=== PATIENT | male | born 1985 | race Caucasian/White ===

== ENCOUNTER 2021-05-13 13:34 | Observation (INO) ==
[2021-05-13 19:22] LABS: Basophils # (auto) 0.02 K/uL (0-0.2); Basophils % (auto) 0.2 %; Eosinophils # (auto) 0.14 K/uL (0-0.5); Eosinophils % (auto) 1.3 %; Hematocrit (blood only) 45.2 % (42-52); Hemoglobin 14.7 g/dL (14.0-18.0); Immature Granulocytes # (auto) 0.03 K/uL (0.00-0.02); Immature Granulocytes % (auto) 0.3 %; Lymphocytes # (auto) 3.05 K/uL (1.2-3.4); Lymphocytes % (auto) 29.2 %; Mean Corpuscular Hemoglobin 31.4 pg (25-34); Mean Corpuscular Hgb Conc 32.5 g/dL (32-36); Mean Corpuscular Volume 96.6 fL (80-100); Mean Platelet Volume 10.2 fL (7.4-10.4); Monocytes % (auto) 8.6 %; Neutrophils # (auto) 6.29 K/uL (1.4-6.5); Neutrophils % (auto) 60.4 %; Platelet Count 289 K/uL (130-400); RDW Coefficient of Variation 13.1 % (11.5-14.5); RDW Standard Deviation 46.3 fL (36.4-46.3); Red Blood Count 4.68 M/uL (4.7-6.1); White Blood Count 10.43 K/uL (4.8-10.8)
[2021-05-13 19:41] LABS: Albumin Level 4.2 gm/dl (3.4-5.0); BUN Creatinine Ratio 16.8 (10-20); Calcium 9.9 mg/dl (8.5-10.1); Creatinine Clr Calc Pharmacy 86.4 ml/min; Est GFR (Non-African American) 67.3 ml/min; Potassium 3.5 mmol/L (3.5-5.1)
[2021-05-13 19:44] LABS: Albumin Globulin Ratio 0.9 (0.9-2); Bilirubin,Total 0.7 mg/dl (0.2-1); Globulin 4.7 gm/dl (2.5-4.0); Total Protein 8.9 gm/dl (6.4-8.2)
--- NOTE | 2021-05-13 19:46 | Emergency Department Note ---
Impression & Plan Acute appendicitis with localized peritonitis without abscess ED Provider Note NAME: MAIK AGUIRRE AGE: 36 SEX: M : 1985 ARRIVES VIA: Walk-In INFORMANT: Patient, ED PROVIDER(S): Carlos Eduardo Leal MD Chief Complaint: HPI: Patient does present with concern for abdominal pain on the right lower quadrant x1 week. This radiated to the groin. Patient had been seen in the outpatient setting in the past but did have an ultrasound elevated. Patient actually had an ultrasound that was completed in the [employer] [facility] system which showed that he had an enlarged appendix. Patient does have worsening pain and describes it as burning when he sneezes or coughs. The patient does describe the right lower quadrant pain as achy or as if it is a pulled muscle. Patient states that he has had the symptoms since last . Did have some radiation into his right testicle. The patient has been doing some weight lifting but denies any bulges or masses noted. Patient denies any dysuria or hematuria. Patient is vaccinated for Covid. Patient denies any tobacco use. ROS: See HPI for pertinent positives and negatives. A total of 10 systems were reviewed and otherwise negative. Past medical history: See below Surgical history: See below Social history: See below Physical Exam: GENERAL: NAD, wearing a mask, non-toxic. EYE EXAM: Normal conjunctiva. PERRL, no anisocoria and EOM's grossly intact w/o pain. NECK: Supple, no nuchal rigidity, no adenopathy, non-tender. No signs of meningismus. FROM of the neck with good chin to chest and neck extension. No stridor. LUNGS: Clear to auscultation. Normal chest wall mechanics. HEART: NSR, no MRG. ABDOMEN: Abdomen soft, right lower quadrant pain, normo-active bowel sounds, no masses, no rebound or guarding. BACK: No CVA TTP. SKIN: No rashes and no bruising. UPPER EXTREMITIES: Upper extremities are grossly normal. LOWER EXTREMITIES: Grossly normal, no edema. NEURO EXAM: A&O x3, cranial nerves II-XII grossly intact, normal speech, moves all 4 extremities on command w/o issue. Differential diagnoses: Appendicitis, testicular torsion, infections, d iverticulitis, UTI, obstruction, mesenteric ischemia, aortic pathology, inflammatory bowel disease, renal colic, PUD, pancreatitis, biliary pathology, hernia, volvulus, constipation, as well as other pathologies. Course: Patient was seen and evaluated the bedside. Full history physical exam was performed. Imaging Studies: See Below Cardiac monitoring: An order was placed for continuous cardiac monitoring. The monitor shows a rate of 67 with sinus rhythm. MDM: Patient did present with concern for right lower quadrant pain and possible appendicitis. I did review the patient's outpatient note as well as the patient's outpatient ultrasound which did show concern for appendicitis. Blood work was obtained along with CT abdomen pelvis. CT does show acute appendicitis. Patient was ordered Mefoxin. I did speak the on-call general surgeon Dr. Caruso and the patient did have a Covid swab completed and the patient was taken to the OR for operative treatment. Past Med/Surg History Medical History No pertinent past medical history Surgical History No pertinent past surgical history Social History Smoking Status: Never smoker Preferred Language: Serbian Feels Safe at Home: Yes Allergies Allergies Allergy/AdvReac Type Severity Reaction Status Date / Time cats Allergy eyes swell Uncoded 05/13/21 20:20 Home Meds Home Medications Medication Instructions Recorded Confirmed ascorbic acid (vitamin C) 1,000 mg 1,000 mg PO QAM 03/30/19 05/13/21 tablet (Vitamin C) cholecalciferol (vitamin D3) 25 1,000 unit PO QAM 03/30/19 05/13/21 mcg (1,000 unit) tablet (Vitamin D3) ibuprofen 200 mg tablet 600 mg PO Q6H PRN 03/30/19 05/13/21 multivitamin 1 tab PO QAM 03/30/19 05/13/21 omega 3 350 mg-dha 235 mg-epa 90 1 cap PO QAM 03/30/19 05/13/21 mg-fish oil 597 mg capsule,delay rel ([place]-3) cyanocobalamin (vitamin B-12) 500 500 mcg PO QAM 05/13/21 05/13/21 mcg tablet Results & Data (ED) Vital Signs Vital Signs - 24 hr 05/13/21 13:58 05/13/21 20:36 05/13/21 20:40 Temperature 36.8 C Temperature Source Oral Pulse Rate 52 L 43 L 50 L Pulse Rate from SpO2 Sensor Respiratory Rate 16 20 24 Blood Pressure 152/83 H Blood Pressure Mean 106 Pulse Oximetry 98 100 100 Oxygen Delivery Method Room Air Room Air Sepsis Recent Fever Within 48 Hours No Sepsis New/Unexplained Change in Mental Status No Sepsis Action Taken by Nursing No Action Required 05/13/21 20:50 05/13/21 21:00 05/13/21 21:30 Temperature Temperature Source Pulse Rate 51 L 52 L 52 L Pulse Rate from SpO2 Sensor 53 L 52 L Respiratory Rate 18 15 17 Blood Pressure 137/80 121/73 Blood Pressure Mean 99 89 Pulse Oximetry 100 100 100 Oxygen Delivery Method Room Air Room Air Room Air Sepsis Recent Fever Within 48 Hours Sepsis New/Unexplained Change in Mental Status Sepsis Action Taken by Nursing 05/13/21 22:00 05/13/21 22:30 05/13/21 23:00 Temperature Temperature Source Pulse Rate 50 L 43 L 37 L Pulse Rate from SpO2 Sensor 43 L 44 L 38 L Respiratory Rate 17 16 12 Blood Pressure 129/70 120/68 108/64 Blood Pressure Mean 89 85 78 Pulse Oximetry 98 96 97 Oxygen Delivery Method Room Air Room Air Room Air Sepsis Recent Fever Within 48 Hours Sepsis New/Unexplained Change in Mental Status Sepsis Action Taken by Nursing 05/13/21 23:30 Temperature Temperature Source Pulse Rate 68 Pulse Rate from SpO2 Sensor 39 L Respiratory Rate 14 Blood Pressure 122/68 Blood Pressure Mean 86 Pulse Oximetry 96 Oxygen Delivery Method Room Air Sepsis Recent Fever Within 48 Hours Sepsis New/Unexplained Change in Mental Status Sepsis Action Taken by Shelter Medications Current Medication List: was personally reviewed by me Laboratory Data Attestation: I reviewed the patient's lab results. Result diagrams: 05/13/21 19:12 05/13/21 19:12 Lab Results 05/13/21 05/13/21 05/13/21 Range/Units 19:12 19:12 21:04 WBC 10.43 (4.8-10.8) K/uL RBC 4.68 L (4.7-6.1) M/uL Hgb 14.7 (14.0-18.0) g/dL Hct 45.2 (42-52) % MCV 96.6 (80-100) fL MCH 31.4 (25-34) pg MCHC 32.5 (32-36) g/dL RDW Std Deviation 46.3 (36.4-46.3) fL RDW Coeff of [place] 13.1 (11.5-14.5) % Plt Count 289 (130-400) K/uL MPV 10.2 (7.4-10.4) fL Immature Gran % (Auto) 0.3 % Neut % (Auto) 60.4 % Lymph % (Auto) 29.2 % [place] % (Auto) 8.6 % Eos % (Auto) 1.3 % Baso % (Auto) 0.2 % Neut # (Auto) 6.29 (1.4-6.5) K/uL Lymph # (Auto) 3.05 (1.2-3.4) K/uL [place] # (Auto) 0.90 H (0.11-0.59) K/uL Eos # (Auto) 0.14 (0-0.5) K/uL Baso # (Auto) 0.02 (0-0.2) K/uL Immature Gran # (Auto) 0.03 H (0.00-0.02) K/uL Sodium 137 (136-145) mmol/L Potassium 3.5 (3.5-5.1) mmol/L Chloride 101 (98-107) mmol/L Carbon Dioxide 27 (21-32) mmol/L Anion Gap 8.0 (3-11) BUN 22 H (7-18) mg/dl Creatinine 1.33 (0.6-1.4) mg/dl Est Cr Clr Drug Dosing 86.4 ml/min Est GFR ( Amer) 78.0 ml/min Est GFR (Non-Af Amer) 67.3 ml/min BUN/Creatinine Ratio 16.8 (10-20) Glucose 83 (70-99) mg/dl Calcium 9.9 (8.5-10.1) mg/dl Total Bilirubin 0.7 (0.2-1) mg/dl AST 15 (15-37) U/L ALT 18 (12-78) U/L Alkaline Phosphatase 58 (45-117) U/L Total Protein 8.9 H (6.4-8.2) gm/dl Albumin 4.2 (3.4-5.0) gm/dl Globulin 4.7 H (2.5-4.0) gm/dl Albumin/Globulin Ratio 0.9 (0.9-2) Lipase 126 (73-393) U/L COVID-19 Eval Order Covid19 at [facility] SARS-CoV-2 (PCR) (Negative) 05/13/21 Range/Units 21:04 WBC (4.8-10.8) K/uL RBC (4.7-6.1) M/uL Hgb (14.0-18.0) g/dL Hct (42-52) % MCV (80-100) fL MCH (25-34) pg MCHC (32-36) g/dL RDW Std Deviation (36.4-46.3) fL RDW Coeff of [place] (11.5-14.5) % Plt Count (130-400) K/uL MPV (7.4-10.4) fL Immature Gran % (Auto) % Neut % (Auto) % Lymph % (Auto) % [place] % (Auto) % Eos % (Auto) % Baso % (Auto) % Neut # (Auto) (1.4-6.5) K/uL Lymph # (Auto) (1.2-3.4) K/uL [place] # (Auto) (0.11-0.59) K/uL Eos # (Auto) (0-0.5) K/uL Baso # (Auto) (0-0.2) K/uL Immature Gran # (Auto) (0.00-0.02) K/uL Sodium (136-145) mmol/L Potassium (3.5-5.1) mmol/L Chloride (98-107) mmol/L Carbon Dioxide (21-32) mmol/L Anion Gap (3-11) BUN (7-18) mg/dl Creatinine (0.6-1.4) mg/dl Est Cr Clr Drug Dosing ml/min Est GFR ( Amer) ml/min Est GFR (Non-Af Amer) ml/min BUN/Creatinine Ratio (10-20) Glucose (70-99) mg/dl Calcium (8.5-10.1) mg/dl Total Bilirubin (0.2-1) mg/dl AST (15-37) U/L ALT (12-78) U/L Alkaline Phosphatase (45-117) U/L Total Protein (6.4-8.2) gm/dl Albumin (3.4-5.0) gm/dl Globulin (2.5-4.0) gm/dl Albumin/Globulin Ratio (0.9-2) Lipase (73-393) U/L COVID-19 Eval Order SARS-CoV-2 (PCR) NEGATIVE (Negative) Administered Medications Discontinued Medications Cefoxitin Sodium (Mefoxin) 2,000 mg in 60 mls @ 100 mls/hr IV NOW STA Stop: 05/13/21 21:00 Last Infusion: 05/13/21 21:57 Dose: 0 mls/hr Documented by: [id number] Admin: 05/13/21 21:21 Dose: 100 mls/hr Documented by: [id number] Piperacillin Sod/Tazobactam (Sod 3.375 gm/ Dextrose) 100 ml in 115 mls @ 230 mls/hr IV NOW STA Stop: 05/13/21 23:09 Last Admin: 05/13/21 23:12 Dose: 230 mls/hr Documented by: [id number] Ioversol (Optiray 320 100ml) 92 ml IV ONCE ONE Stop: 05/13/21 19:56 Last Admin: 05/13/21 19:55 Dose: 92 ml Documented by: [id number] Imaging Data Radiologist's Impression: Abdomen/Pelvis CT 05/13/21 19:[address] WITH IV CONTRAST CT DOSE: 420.31 mGy.cm HISTORY: Acute right lower quadrant abdominal pain enlarged appendix on US TECHNIQUE: Multiaxial CT images of the abdomen and pelvis were performed following the IV administration of 92 cc of Optiray, A dose lowering technique was utilized adhering to the principles of ALARA. COMPARISON STUDY: None. FINDINGS: Clear lung bases. No pneumatosis or pneumoperitoneum. The imaged inferior cardiac chambers are unremarkable. The spleen, pancreas, adrenal glands and gallbladder appear unremarkable. There are 2 hypodense lesions of the inferior right hepatic lobe measuring 2.7 and 1.8 cm respectively with areas of peripheral discontinuous nodular enhancement. Patent portal vein. Unremarkable kidneys. No hydronephrosis. Mild urinary bladder wall thickening with partial distention. Prostate is upper limits of normal in size. Aorta and IVC are unremarkable. No bowel obstruction. Mild to moderate fecal retention. The appendix is dilated and fluid-filled measuring up to 2.2 cm transversely and demonstrates wall thickening with mucosal hyperemia. Three appendicoliths are present measuring up to 1.5 cm. Periappendiceal inflammation without abscess. Lymph nodes within the right lower quadrant mesentery measure up to 11 mm, likely reactive. Unremarkable soft tissues. No acute. Multilevel Schmorl's nodes of the spine. Chronic bilateral L4 pars defects with grade 1 anterolisthesis L5. IMPRESSION: 1. Acute appendicitis with associated appendicoliths. No perforation or abscess. Surgical consultation is needed. 2. No bowel obstruction. 3. There are two hypodense lesions of the inferior right hepatic lobe with findings suggestive of hepatic hemangiomata. 4. Additional incidental findings as above. ACT 112: Negative or not required by law. The above report was generated using voice recognition software. It may contain grammatical, syntax or spelling errors. Electronically signed by: Jamal Costello M.D. 05/13/2021 8:20 PM Discharge Plan Visit Data Chief Complaint: Abdominal Pain Stated Complaint: [facility] ED Provider: Carlos Eduardo Leal ED Midlevel Provider: Butch Camejo Discharge Problem: Acute appendicitis with localized peritonitis without abscess Patient Disposition: Admitted As Inpatient Discharge Instructions Interventions: ED Discharge Assessment Last Done: 05/13/21 23:39
[2021-05-13] MEDS ORDERED: OPTIRAY 320 100ml IV ONE (19:55)
--- NOTE | 2021-05-13 20:22 | CT Scan Report ---
ABDOMEN AND PELVIS CT WITH IV CONTRAST CT DOSE: 420.31 mGy.cm HISTORY: Acute right lower quadrant abdominal pain enlarged appendix on US TECHNIQUE: Multiaxial CT images of the abdomen and pelvis were performed following the IV administrat ion of 92 cc of Optiray, A dose lowering technique was utilized adhering to the principles of ALARA. COMPARISON STUDY: None. FINDINGS: Clear lung bases. No pneumatosis or pneumoperitoneum. The imaged inferior cardiac chambers are unremarkable. The spleen, pancreas, adrenal glands and gallbladder appear unremarkable. There are 2 hypodense lesions of the inferior right hepatic lobe measuring 2.7 and 1.8 cm respectively with ar eas of peripheral discontinuous nodular enhancement. Patent portal vein. Unremarkable kidneys. No hydronephrosis. Mild urinary bladder wall thickening with partial distention . Prostate is upper limits of normal in size. Aorta and IVC are unremarkable. No bowel obstruction. Mild to moderate fecal retention. The appendix is dilated and fluid-filled mauricio uring up to 2.2 cm transversely and demonstrates wall thickening with mucosal hyperemia. Three append icoliths are present measuring up to 1.5 cm. Periappendiceal inflammation without abscess. Lymph node s within the right lower quadrant mesentery measure up to 11 mm, likely reactive. Unremarkable soft t issues. No acute. Multilevel Schmorl's nodes of the spine. Chronic bilateral L4 pars defects with gra de 1 anterolisthesis L5. IMPRESSION: 1. Acute appendicitis with associated appendicoliths. No perforation or abscess. Surgical consultatio n is needed. 2. No bowel obstruction. 3. There are two hypodense lesions of the inferior right hepatic lobe with findings suggestive of hep atic hemangiomata. 4. Additional incidental findings as above. ACT 112: Negative or not required by law. The above report was generated using voice recognition software. It may contain grammatical, syntax o r spelling errors. Electronically signed by: Jamal Costello M.D. 05/13/2021 8:20 PM
[2021-05-13] MEDS ORDERED: cefOXitin 2,000 MG/60 ML BAG IV STA (20:25)
--- NOTE | 2021-05-13 20:26 | Emergency Department Note ---
ED Visit Note I saw this patient with Dr. Leal. Please refer to his note for HPI. . Resident Activity Tracking Resident Involvement: Resident Care Provided Care Provided: Adult ED
[2021-05-13] MEDS ORDERED: PIPERACILL/TAZOBAC CONSULT ACTIVE PRN (21:51)
--- NOTE | 2021-05-13 22:26 | History & Physical Report ---
Date of Service May 13, 2021 Assessment & Plan (1) Acute appendicitis with localized peritonitis without abscess: Plan: 36-year-old gentleman presents to the emergency department with acute appendicitis. Covid test is pending. He has been given antibiotics in the emergency department. I discussed with him the risks and benefits of laparoscopic appendectomy. The risks include: Bleeding, infection, leak, obstruction, injury to the surrounding structures, need for further procedures or open procedure. All his questions were answered, and he is agreeable to proceed. We will take him to the operating room at the earliest possible convenience. History of Present Illness Primary Care Provider: NO PCP 36-year-old gentleman presents with 1 week history of right lower quadrant pain, on and off. He states that yesterday the pain became significantly more severe in the right side. He denies fevers or chills. He denies nausea or vomiting. He has been eating and having normal bowel movements. He last ate this morning at 6 AM. He denies any prior surgical history. A CT scan demonstrates acute appendicitis with multiple appendicoliths. Allergies Allergy/AdvReac Type Severity Reaction Status Date / Time cats Allergy eyes swell Uncoded 05/13/21 20:20 Home Medications Medication Instructions Recorded Confirmed Type ascorbic acid (vitamin C) 1,000 mg 1,000 mg PO QAM 03/30/19 05/13/21 History tablet (Vitamin C) cholecalciferol (vitamin D3) 25 1,000 unit PO QAM 03/30/19 05/13/21 History mcg (1,000 unit) tablet (Vitamin D3) ibuprofen 200 mg tablet 600 mg PO Q6H PRN 03/30/19 05/13/21 History multivitamin 1 tab PO QAM 03/30/19 05/13/21 History omega 3 350 mg-dha 235 mg-epa 90 1 cap PO QAM 03/30/19 05/13/21 History mg-fish oil 597 mg capsule,delay rel ([place]-3) cyanocobalamin (vitamin B-12) 500 500 mcg PO QAM 05/13/21 05/13/21 History mcg tablet Past Med/Surg History Medical History No pertinent past medical history Surgical History No pertinent past surgical history Social History Smoking Status: Never smoker Preferred Language: Setswana Feels Safe at Home: Yes Review of Systems Review of Systems: All systems reviewed & are unremarkable except as noted in HPI & below Physical Exam Constitutional: WD/WN, vitals as above Eyes: PERRL, conjunctivae normal, anicteric sclerae Neck: trachea midline, no thyromegaly Respiratory: normal respiratory effort, lungs clear to auscultation Cardiovascular: RRR, no murmur, no edema Gastrointestinal (Abdomen): Inspection/Auscultation: abdomen normal to inspection; abdomen not distended and no abdominal surgical scar Percussion/Palpation: + abdomen tender (right mid and lower quadrant) and abdomen soft; no guarding and abdomen not rigid Musculoskeletal: Extremities: no cyanosis and no clubbing Skin: no rashes, warm and dry Psychiatric: A+Ox3, euthymic affect Results & Data Results & Data ([facility]) Vital Signs (Past 12 Hours) Vital Signs Temp Pulse Resp BP Pulse Ox 05/13/21 22:00 50 L 17 129/70 98 05/13/21 21:30 52 L 17 121/73 100 05/13/21 21:00 52 L 15 137/80 100 05/13/21 20:50 51 L 18 100 05/13/21 20:40 50 L 24 100 05/13/21 20:36 43 L 20 100 05/13/21 13:58 36.8 C 52 L 16 152/83 H 98 Laboratory Results 05/13/21 05/13/21 05/13/21 Range/Units 21:04 21:04 19:12 WBC (4.8-10.8) K/uL RBC (4.7-6.1) M/uL Hgb (14.0-18.0) g/dL Hct (42-52) % MCV (80-100) fL MCH (25-34) pg MCHC (32-36) g/dL RDW Std Deviation (36.4-46.3) fL RDW Coeff of [place] (11.5-14.5) % Plt Count (130-400) K/uL MPV (7.4-10.4) fL Immature Gran % (Auto) % Neut % (Auto) % Lymph % (Auto) % [place] % (Auto) % Eos % (Auto) % Baso % (Auto) % Neut # (Auto) (1.4-6.5) K/uL Lymph # (Auto) (1.2-3.4) K/uL [place] # (Auto) (0.11-0.59) K/uL Eos # (Auto) (0-0.5) K/uL Baso # (Auto) (0-0.2) K/uL Immature Gran # (Auto) (0.00-0.02) K/uL Sodium 137 (136-145) mmol/L Potassium 3.5 (3.5-5.1) mmol/L Chloride 101 (98-107) mmol/L Carbon Dioxide 27 (21-32) mmol/L Anion Gap 8.0 (3-11) BUN 22 H (7-18) mg/dl Creatinine 1.33 (0.6-1.4) mg/dl Est Cr Clr Drug Dosing 86.4 ml/min Est GFR ( Amer) 78.0 ml/min Est GFR (Non-Af Amer) 67.3 ml/min BUN/Creatinine Ratio 16.8 (10-20) Glucose 83 (70-99) mg/dl Calcium 9.9 (8.5-10.1) mg/dl Total Bilirubin 0.7 (0.2-1) mg/dl AST 15 (15-37) U/L ALT 18 (12-78) U/L Alkaline Phosphatase 58 (45-117) U/L Total Protein 8.9 H (6.4-8.2) gm/dl Albumin 4.2 (3.4-5.0) gm/dl Globulin 4.7 H (2.5-4.0) gm/dl Albumin/Globulin Ratio 0.9 (0.9-2) Lipase 126 (73-393) U/L COVID-19 Eval Order Covid19 at [facility] SARS-CoV-2 (PCR) Pending 05/13/21 Range/Units 19:12 WBC 10.43 (4.8-10.8) K/uL RBC 4.68 L (4.7-6.1) M/uL Hgb 14.7 (14.0-18.0) g/dL Hct 45.2 (42-52) % MCV 96.6 (80-100) fL MCH 31.4 (25-34) pg MCHC 32.5 (32-36) g/dL RDW Std Deviation 46.3 (36.4-46.3) fL RDW Coeff of [place] 13.1 (11.5-14.5) % Plt Count 289 (130-400) K/uL MPV 10.2 (7.4-10.4) fL Immature Gran % (Auto) 0.3 % Neut % (Auto) 60.4 % Lymph % (Auto) 29.2 % [place] % (Auto) 8.6 % Eos % (Auto) 1.3 % Baso % (Auto) 0.2 % Neut # (Auto) 6.29 (1.4-6.5) K/uL Lymph # (Auto) 3.05 (1.2-3.4) K/uL [place] # (Auto) 0.90 H (0.11-0.59) K/uL Eos # (Auto) 0.14 (0-0.5) K/uL Baso # (Auto) 0.02 (0-0.2) K/uL Immature Gran # (Auto) 0.03 H (0.00-0.02) K/uL Sodium (136-145) mmol/L Potassium (3.5-5.1) mmol/L Chloride (98-107) mmol/L Carbon Dioxide (21-32) mmol/L Anion Gap (3-11) BUN (7-18) mg/dl Creatinine (0.6-1.4) mg/dl Est Cr Clr Drug Dosing ml/min Est GFR ( Amer) ml/min Est GFR (Non-Af Amer) ml/min BUN/Creatinine Ratio (10-20) Glucose (70-99) mg/dl Calcium (8.5-10.1) mg/dl Total Bilirubin (0.2-1) mg/dl AST (15-37) U/L ALT (12-78) U/L Alkaline Phosphatase (45-117) U/L Total Protein (6.4-8.2) gm/dl Albumin (3.4-5.0) gm/dl Globulin (2.5-4.0) gm/dl Albumin/Globulin Ratio (0.9-2) Lipase (73-393) U/L COVID-19 Eval Order SARS-CoV-2 (PCR) Diagnostic Findings ABDOMEN AND PELVIS CT WITH IV CONTRAST CT DOSE: 420.31 mGy.cm HISTORY: Acute right lower quadrant abdominal pain enlarged appendix on US TECHNIQUE: Multiaxial CT images of the abdomen and pelvis were performed following the IV administration of 92 cc of Optiray, A dose lowering technique was utilized adhering to the principles of ALARA. COMPARISON STUDY: None. FINDINGS: Clear lung bases. No pneumatosis or pneumoperitoneum. The imaged inferior cardiac chambers are unremarkable. The spleen, pancreas, adrenal glands and gallbladder appear unremarkable. There are 2 hypodense lesions of the inferior right hepatic lobe measuring 2.7 and 1.8 cm respectively with areas of peripheral discontinuous nodular enhancement. Patent portal vein. Unremarkable kidneys. No hydronephrosis. Mild urinary bladder wall thickening with partial distention. Prostate is upper limits of normal in size. Aorta and IVC are unremarkable. No bowel obstruction. Mild to moderate fecal retention. The appendix is dilated and fluid-filled measuring up to 2.2 cm transversely and demonstrates wall thickening with mucosal hyperemia. Three appendicoliths are present measuring up to 1.5 cm. Periappendiceal inflammation without abscess. Lymph nodes within the right lower quadrant mesentery measure up to 11 mm, likely reactive. Unremarkable soft tissues. No acute. Multilevel Schmorl's nodes of the spine. Chronic bilateral L4 pars defects with grade 1 anterolisthesis L5. IMPRESSION: 1. Acute appendicitis with associated appendicoliths. No perforation or abscess. Surgical consultation is needed. 2. No bowel obstruction. 3. There are two hypodense lesions of the inferior right hepatic lobe with findings suggestive of hepatic hemangiomata. 4. Additional incidental findings as above.
[2021-05-13] MEDS ORDERED: PIPERACILLIN/TAZOBACTAM 3.375 GM in DEXTROSE 5% 100 ML/100 ML BAG IV STA (22:40)
[2021-05-13] MEDS ORDERED: BUPIVACAINE 0.5 % 5 MG/1 ML MPF 30ML VIAL ONE (23:58)
[2021-05-14] MEDS ORDERED: PROPOFOL IV EMULSION 10 MG/ML 20 ML VIAL IV ONE (00:06)
[2021-05-14] MEDS ORDERED: DEXAMETHASONE SOD INJ 4 MG/ML VIAL ONE (00:06)
[2021-05-14] MEDS ORDERED: LIDOCAINE 2% 2 ML VIAL/AMP(20MG/ML) INFIL ONE (00:06)
[2021-05-14] MEDS ORDERED: SUCCINYLCHOLINE 100MG/5ML SYR IV ONE (00:06)
[2021-05-14] MEDS ORDERED: ROCURONIUM BROMIDE 10 MG/ML 5 ML VIAL IV ONE (00:06)
[2021-05-14] MEDS ORDERED: ONDANSETRON INJ 2 MG/ML 2 ML VIAL ONE (00:06)
[2021-05-14] MEDS ORDERED: fentaNYL citrate 100 MCG/2 ML VIAL ONE ×2 (00:07→01:01)
--- NOTE | 2021-05-14 00:18 | Anesthesiology Consultation ---
Date of Service May 14, 2021 Assessment & Plan (1) Encounter for pre-operative examination: Chart Review Chart Review: Acceptable Risk for Surgery and Patient NOT seen in Pre Admission Testing Consults Requested none History Surgery Operation Date: 05/13/21 23:59 Proposed Procedures p Laparoscopic Appendectomy - Tomas Caruso MD Height/Weight Height: 5 ft 10 in Weight: 93.2 kg Allergies Allergy/AdvReac Type Severity Reaction Status Date / Time cats Allergy eyes swell Uncoded 05/13/21 20:20 Medications Home Medications Medication Instructions Recorded Confirmed Last Taken ascorbic acid (vitamin C) 1,000 mg 1,000 mg PO QAM 03/30/19 05/13/21 05/13/21 tablet (Vitamin C) cholecalciferol (vitamin D3) 25 1,000 unit PO QAM 03/30/19 05/13/21 05/13/21 mcg (1,000 unit) tablet (Vitamin D3) ibuprofen 200 mg tablet 600 mg PO Q6H PRN 03/30/19 05/13/21 03/30/19 07:30 600 mg multivitamin 1 tab PO QAM 03/30/19 05/13/21 05/13/21 omega 3 350 mg-dha 235 mg-epa 90 1 cap PO QAM 03/30/19 05/13/21 05/13/21 mg-fish oil 597 mg capsule,delay rel ([place]-3) cyanocobalamin (vitamin B-12) 500 500 mcg PO QAM 05/13/21 05/13/21 05/13/21 mcg tablet Past Medical History Medical History No pertinent past medical history Past Surgical History Surgical History No pertinent past surgical history Social History Smoking Status: Never smoker Physical Exam Vital Signs Last Vital Signs Temp 36.8 C 05/13/21 13:58 Pulse 68 05/13/21 23:30 Resp 14 05/13/21 23:30 BP 122/68 05/13/21 23:30 Pulse Ox 96 05/13/21 23:30 Testing Laboratory Results 05/13/21 19:12 05/13/21 19:12
[2021-05-14] MEDS ORDERED: PROMETHAZINE HCL 12.5 MG in SODIUM CHLORIDE 0.9% 50 ML IV PRN ×2 (00:27→03:46)
[2021-05-14] MEDS ORDERED: fentaNYL citrate 100 MCG/2 ML VIAL IV PRN (00:27)
[2021-05-14] MEDS ORDERED: ATROPINE SULFATE 0.1 MG/ML 10ML SYR IV PRN (00:27)
[2021-05-14] MEDS ORDERED: ONDANSETRON INJ 2 MG/ML 2 ML VIAL IV PRN ×2 (00:27→03:46)
[2021-05-14] MEDS ORDERED: ePHEDrine sulfate 50 MG/ML AMP IV PRN (00:27)
[2021-05-14] MEDS ORDERED: HYDROmorphone INJ 1 MG/ML SYRINGE IV PRN (00:27)
[2021-05-14] MEDS ORDERED: GLYCOPYRROLATE 0.2 MG/ML VIAL ONE ×2 (01:35→01:36)
[2021-05-14] MEDS ORDERED: NEOSTIGMINE METHYLSULFATE 1 MG/ML 10ML VIAL ONE (01:35)
--- NOTE | 2021-05-14 02:05 | Post Operative Brief Note ---
Immediate Post Op Note v1 Date of Surgery May 14, 2021 Pre & Post Diagnosis Operation Date: 05/13/21 23:59 Pre-Op Diagnosis: Acute Appendicitis Post-Op Diagnosis: Acute Appendicitis I identified the patient and participated in the time-out.: Yes Procedure Operation Date: 05/13/21 23:59 Actual Procedures p Laparoscopic Appendectomy(Not Applicable) - Tomas Caruso MD Surgeon Tomas Caruso MD Market Research Assistant none Estimated Blood Loss 5 Findings Consistent with Post-Op Diagnosis
--- NOTE | 2021-05-14 02:09 | Operative Report ---
Post Operative Report Pre & Post Diagnosis Operation Date: 05/13/21 23:59 Pre-Op Diagnosis: Acute Appendicitis Post-Op Diagnosis: Acute Appendicitis I identified the patient and participated in the time-out.: Yes Procedure Operation Date: 05/13/21 23:59 Actual Procedures p Laparoscopic Appendectomy(Not Applicable) - Tomas Caruso MD Surgeon Tomas Caruso MD [employer] none Estimated Blood Loss 5 Findings Consistent with Post-Op Diagnosis severe acute appendicitis; no perforation; severe inflammatory reaction Specimens appendix Anesthesia Type General Complications No immediate complications Indications Acute appendicitis Description of Procedure The patient was taken to the operating room, and placed supine on the operating table. A timeout was performed, perioperative antibiotics were administered, SCD boots were placed. After adequate anesthesia and analgesia was obtained, the abdomen was prepped and draped in the normal sterile fashion. A 1 cm incision was made in the supraumbilical region and carried down to the level of the fascia. A trach hook was used to grasp the fascia and elevated and a varies needle was used to enter the abdominal cavity. The abdomen was insufflated to a pressure of 15 mmHg, and a 5 mm trocar was placed in this location. A 5 mm 30 degree laparoscope was placed into the abdominal cavity, and the abdomen was surveyed. There is a severe inflammatory reaction in the right lower quadrant. The appendix was very dilated. The patient was placed in Trendelenburg and slightly to the left. One 5 mm trocar was placed in the right upper quadrant, and one 12 mm trocar was placed in the left lower quadrant under direct visualization. The right colon was identified and traced down to the cecum. The appendix was identified and elevated anteriorly and medially. It was very difficult to grasp the appendix as it was very dilated and firm. There is a severe inflammatory reaction at the appendix. I was able to peel the appendix off the pelvic sidewall with blunt dissection and judicious use of the cautery. A window was created at the base of the appendix with a [place] dissector. The Endo MEME stapler was used to transect the appendix at its base through noninflamed tissue, which entailed taking a cuff of cecum. Subsequently, the mesoappendix was transected with the MEME stapler as well. The appendix was placed in an Endo Catch bag, and removed via the left lower quadrant port site. The left lower quadrant port site had to be significantly enlarged to remove the appendix due to its size. Attention was turned to hemostasis, which was excellent. The abdomen was copiously irrigated and suctioned free, and again hemostasis was found to be excellent. All trochars removed under direct visualization. The abdomen was desufflated. The fascia in the 12 mm port site was closed with a 0 Vicryl suture. The skin was closed with a running 4-0 Monocryl subcuticular stitch. Dermabond was applied. The patient tolerated the procedure without complication, and was transferred in stable condition to the PACU. All instrument, needle, and sponge counts were correct at the end of the case. I attest to the content of the Intraoperative Record and any orders documented therein. Any exceptions are noted below.
[2021-05-14] MEDS ORDERED: MEPERIDINE HCL 25 MG/ML CARP/VIAL IV PRN (02:19)
--- NOTE | 2021-05-14 03:05 | Anesthesiology Progress Note ---
Date of Service May 14, 2021 Anesthesia Post Procedure Vital Signs Vital Signs: Temp Pulse Pulse Resp BP BP Pulse Ox 05/14/21 02:50 48 L 11 L 142/87 H 97 05/14/21 02:40 44 L 15 135/84 99 05/14/21 02:30 45 L 16 149/84 H 98 05/14/21 02:20 37.4 C 81 18 152/92 H 94 05/13/21 23:30 68 14 122/68 96 05/13/21 23:00 37 L 12 108/64 97 05/13/21 22:30 43 L 16 120/68 96 05/13/21 22:00 50 L 17 129/70 98 05/13/21 21:30 52 L 17 121/73 100 05/13/21 21:00 52 L 15 137/80 100 05/13/21 20:50 51 L 18 100 05/13/21 20:40 50 L 24 100 05/13/21 20:36 43 L 20 100 05/13/21 13:58 36.8 C 52 L 16 152/83 H 98 Pain Intensity Right Lower Abdomen: Pain Intensity: 0 Transfer of Care Handoff Completed per policy Notes Mental Status: alert / awake / arousable and participated in evaluation Patient Amnestic to Procedure: Yes Nausea / Vomiting: adequately controlled Pain: adequately controlled Airway Patency, RR, SpO2: stable & adequate BP & HR: stable & adequate Hydration State: stable & adequate Anesthetic Complications: no major complications apparent and Pt Satisfied with anesthetic care
[2021-05-14] MEDS ORDERED: MoRPHine SULFATE 2 MG/ML CARP IV PRN (03:46)
[2021-05-14] MEDS ORDERED: diphenhydrAMINE 50 MG/ML VIAL IV PRN (03:46)
[2021-05-14] MEDS: LACTATED RINGER'S 1,000 ML IV SCH ×2 (04:20→23:28)
[2021-05-14] MEDS: PIPERACILLIN/TAZOBACTAM 3.375 GM in DEXTROSE 5% 100 ML IV SCH ×3 (04:44→19:39)
[2021-05-14] MEDS: ENOXAPARIN INJ 40 MG/0.4 ML SYR SQ SCH (05:51)
[2021-05-14] MEDS: oxyCODONE/ACETAMINOPHEN 5mg/325mg TAB PO PRN ×3 (07:34→19:51)
[2021-05-14] MEDS ORDERED: COUGH DROP (SUGAR FREE) LOZ 24 LOZ/1 BOX BUCCAL PRN (10:21)
--- NOTE | 2021-05-14 15:42 | Surgery Progress Note ---
Date of Service May 14, 2021 Assessment & Plan (1) Acute appendicitis with localized peritonitis without abscess: Plan: POD # 0, 13 hours postop, laparoscopic appendectomy afebrile, vss moderate postop pain controlled mild abdominal distension, no n/v Plan: Continue pain management as needed ambulate hallway continue regular diet incentive spirometry scds likely home tomorrow am Dr. Caruso has seen and examined pt, agrees with above. Admission and Anticipated Discharge Date Admission Date: May 14, 2021 Subjective feeling okay, pain moderate but controlled with Percocet tolerated diet for lunch, no n/v no chest pain or shortness of breath able to urinate but had some burning has ambulated hallway 8-10 laps Physical Exam Constitutional: WD/WN, vitals as above no acute distress and not ill appearing Gastrointestinal (Abdomen): Inspection/Auscultation: abdomen normal to inspection, + abdomen distended (very mildly), normal bowel sounds and + abdominal surgical incision (clean,dry,intact with dermabond) Percussion/Palpation: + abdomen tender (at incision sites and RLQ) and abdomen soft; no guarding and abdomen not rigid Results & Data ([facility]) Vital Signs (Past 12 Hours) Vital Signs Temp Pulse Pulse Resp BP Pulse Ox Pulse Ox 05/14/21 11:29 36.6 C 69 16 143/76 H 93 05/14/21 08:20 46 L 18 94 05/14/21 06:57 37.1 C 73 18 144/71 H 96 05/14/21 05:55 36.9 C 54 L 16 135/74 95 05/14/21 04:51 37.2 C 53 L 16 138/76 96 05/14/21 04:16 37.3 C 48 L 20 147/81 H 93 05/14/21 03:48 37.1 C 48 L 16 153/86 H 94 05/14/21 03:46 94 Laboratory Results 05/13/21 05/13/21 05/13/21 Range/Units 21:04 21:04 19:12 WBC (4.8-10.8) K/uL RBC (4.7-6.1) M/uL Hgb (14.0-18.0) g/dL Hct (42-52) % MCV (80-100) fL MCH (25-34) pg MCHC (32-36) g/dL RDW Std Deviation (36.4-46.3) fL RDW Coeff of Tyler (11.5-14.5) % Plt Count (130-400) K/uL MPV (7.4-10.4) fL Immature Gran % (Auto) % Neut % (Auto) % Lymph % (Auto) % Villalba % (Auto) % Eos % (Auto) % Baso % (Auto) % Neut # (Auto) (1.4-6.5) K/uL Lymph # (Auto) (1.2-3.4) K/uL Villalba # (Auto) (0.11-0.59) K/uL Eos # (Auto) (0-0.5) K/uL Baso # (Auto) (0-0.2) K/uL Immature Gran # (Auto) (0.00-0.02) K/uL Sodium 137 (136-145) mmol/L Potassium 3.5 (3.5-5.1) mmol/L Chloride 101 (98-107) mmol/L Carbon Dioxide 27 (21-32) mmol/L Anion Gap 8.0 (3-11) BUN 22 H (7-18) mg/dl Creatinine 1.33 (0.6-1.4) mg/dl Est Cr Clr Drug Dosing 86.4 ml/min Est GFR ( Amer) 78.0 ml/min Est GFR (Non-Af Amer) 67.3 ml/min BUN/Creatinine Ratio 16.8 (10-20) Glucose 83 (70-99) mg/dl Calcium 9.9 (8.5-10.1) mg/dl Total Bilirubin 0.7 (0.2-1) mg/dl AST 15 (15-37) U/L ALT 18 (12-78) U/L Alkaline Phosphatase 58 (45-117) U/L Total Protein 8.9 H (6.4-8.2) gm/dl Albumin 4.2 (3.4-5.0) gm/dl Globulin 4.7 H (2.5-4.0) gm/dl Albumin/Globulin Ratio 0.9 (0.9-2) Lipase 126 (73-393) U/L COVID-19 Eval Order Covid19 at [facility] SARS-CoV-2 (PCR) NEGATIVE (Negative) 05/13/21 Range/Units 19:12 WBC 10.43 (4.8-10.8) K/uL RBC 4.68 L (4.7-6.1) M/uL Hgb 14.7 (14.0-18.0) g/dL Hct 45.2 (42-52) % MCV 96.6 (80-100) fL MCH 31.4 (25-34) pg MCHC 32.5 (32-36) g/dL RDW Std Deviation 46.3 (36.4-46.3) fL RDW Coeff of Tyler 13.1 (11.5-14.5) % Plt Count 289 (130-400) K/uL MPV 10.2 (7.4-10.4) fL Immature Gran % (Auto) 0.3 % Neut % (Auto) 60.4 % Lymph % (Auto) 29.2 % Villalba % (Auto) 8.6 % Eos % (Auto) 1.3 % Baso % (Auto) 0.2 % Neut # (Auto) 6.29 (1.4-6.5) K/uL Lymph # (Auto) 3.05 (1.2-3.4) K/uL Villalba # (Auto) 0.90 H (0.11-0.59) K/uL Eos # (Auto) 0.14 (0-0.5) K/uL Baso # (Auto) 0.02 (0-0.2) K/uL Immature Gran # (Auto) 0.03 H (0.00-0.02) K/uL Sodium (136-145) mmol/L Potassium (3.5-5.1) mmol/L Chloride (98-107) mmol/L Carbon Dioxide (21-32) mmol/L Anion Gap (3-11) BUN (7-18) mg/dl Creatinine (0.6-1.4) mg/dl Est Cr Clr Drug Dosing ml/min Est GFR ( Amer) ml/min Est GFR (Non-Af Amer) ml/min BUN/Creatinine Ratio (10-20) Glucose (70-99) mg/dl Calcium (8.5-10.1) mg/dl Total Bilirubin (0.2-1) mg/dl AST (15-37) U/L ALT (12-78) U/L Alkaline Phosphatase (45-117) U/L Total Protein (6.4-8.2) gm/dl Albumin (3.4-5.0) gm/dl Globulin (2.5-4.0) gm/dl Albumin/Globulin Ratio (0.9-2) Lipase (73-393) U/L COVID-19 Eval Order SARS-CoV-2 (PCR) (Negative)
[2021-05-15] MEDS: oxyCODONE/ACETAMINOPHEN 5mg/325mg TAB PO PRN ×3 (01:01→12:52)
[2021-05-15] MEDS: PIPERACILLIN/TAZOBACTAM 3.375 GM in DEXTROSE 5% 100 ML IV SCH (04:32)
[2021-05-15] MEDS: ENOXAPARIN INJ 40 MG/0.4 ML SYR SQ SCH (05:40)
--- NOTE | 2021-05-15 11:33 | Discharge Summary ---
Date of Service May 15, 2021 Admission HPI Per Admitting Provider 36-year-old gentleman presents with 1 week history of right lower quadrant pain, on and off. He states that yesterday the pain became significantly more severe in the right side. He denies fevers or chills. He denies nausea or vomiting. He has been eating and having normal bowel movements. He last ate this morning at 6 AM. He denies any prior surgical history. A CT scan demonstrates acute appendicitis with multiple appendicoliths. Principal Diagnosis Acute appendicitis Discharge Exam Constitutional WD/WN, vitals as above no acute distress and not ill appearing Gastrointestinal (Abdomen) Inspection/Auscultation: abdomen normal to inspection, normal bowel sounds and + abdominal surgical incision (clean,dry,intact with dermabond) Percussion/Palpation: + abdomen tender (at incision sites and RLQ) and abdomen soft; no guarding and abdomen not rigid Skin no rashes, warm and dry There is erythema surrounding LLQ incision site extended to the left flank and down slightly to left groin. No induration or fluctuance. Psychiatric A+Ox3, euthymic affect Discharge Data Allergies Allergy/AdvReac Type Severity Reaction Status Date / Time cats Allergy eyes swell Uncoded 05/13/21 20:20 Consultations 05/13/21 20:27 ED Decision to Admit Stat Procedures Performed Operation Date: 05/13/21 23:59 Actual Procedures p Laparoscopic Appendectomy(Not Applicable) - Tomas Caruso MD Ordered Studies 05/13/21 19:43 CT abd pelvis IV con only Stat Hospital Course (1) Acute appendicitis with localized peritonitis without abscess: Patient was taken to operating room from emergency department for laparoscopic appendectomy. Patient found to have enlarged, dilated appendix with acute appendicitis and inflammation of the cecum but no evidence of perforation or abscess. Patient tolerated procedure well and was transferred to recovery then to medical/surgical floor for postop care. POD # 0, about 13 hours postop vitals stable, afebrile, moderate postop pain somewhat controlled. Mild bloating. Not passing any gas. No vomiting. Patient tolerating diet. Patient advised to continue ambulating and Percocet was continued for pain control. Patient was kept overnight for further pain control and IV antibiotics. POD # 1 afebrile, vitals stable, pain controlled, no n/v, tolerating diet, ambulating hallway. There was some erythema surrounding LLQ incision site extending to left flank region but no induration or fluctuance. Patient was discharged home on POD # 1 in stable condition with 5 day course of Augmentin and Rx for Percocet as needed. Surgical follow-up in 1 week. Total Time Total Time Spent Total Time Spent (In Minutes): 30 Total Time Includes: Examination of the Patient, Discharge Planning and Medication Reconciliation Discharge Plan Discharge Items Patient Disposition: Home - Self-Care Reason For Visit: ACUTE APPENDICITIS Discharge Diagnosis: Acute appendicitis Activity: Per Instructions section Non-emergency contact: Surgeon Call non-emergency contact if: your pain is not controlled, your pain is worsening, your pain is concerning for you, you have a fever, your temperature is above 101, your wound has increased redness, your wound has increased drainage and your wound pain has increased Follow-up/Referrals: Tomas Caruso MD [Physician] - (Follow-up with Dr. Caruso end of next week. Please call [phone] to make an appointment) PCP,NO [Primary Care Provider] - Diet: Regular Addtl Attending Provider Instructions: Post-Surgical ~Discharge Instructions Activity Recommendations: - lifting limitation: (20 pounds for 2 weeks), - exercise/sex/sports limit: (nonstrenuous for 2 weeks), - driving or machine use limit: (none for 1 week or until pain free and no longer taking narcotic pain medication), - Shower/bathe limit: (may shower) Diet: - Resume previous diet SPECIAL CARE INSTRUCTIONS: - May shower. Let water run over area and pat dry. Do not submerge incisions underwater for 2 weeks (bathing, swimming, hot tubs) - Surgical glue will fall off on its own. - Call the surgeon's office with any questions or concerns - - (ex. temperature higher than 101 degrees F, excessive bleeding or pain). MEDICATIONS: - Resume previous medications unless instructed otherwise by your surgeon. - May alternate extra strength Tylenol and Ibuprofen as needed for mild to moderate pain -650 mg Tylenol every 6 hours as needed - Ibuprofen 600 mg every 6 hours as needed (take with food) - Percocet 1 every 4 hours, as needed for moderate to severe pain - Recommend daily stool softener (Colace) while taking narcotic pain medicaiton to prevent constipation or straining FOLLOW UP VISIT: - Scheduled for follow-up with Dr. Caruso on 05/22/2021 at 3:00 pm Office number Pending Studies at Discharge: Yes (appendix pathology) Stand-Alone Forms: [facility] [employer], Smoking Cessation Medications and DC Order Prescriptions: New oxycodone-acetaminophen [Percocet] 5-325 mg tablet 1 tab PO Q4H PRN (Reason: pain) Qty: 10 RF: 0 amoxicillin-pot clavulanate 875-125 mg tablet 1 tab PO BID Qty: 10 RF: 0 Continued multivitamin Tablet 1 tab PO QAM RF: 0 ascorbic acid (vitamin C) [Vitamin C] 1,000 mg Tablet 1,000 mg PO QAM RF: 0 ibuprofen 200 mg Tablet 600 mg PO Q6H PRN (Reason: Pain) RF: 0 cholecalciferol (vitamin D3) [Vitamin D3] 1,000 unit (25 mcg) Tablet 1,000 unit PO QAM RF: 0 [place]-3 350 mg-235 mg- 90 mg-597 mg Capsule,Delayed Release(Dr/Ec) 1 cap PO QAM RF: 0 cyanocobalamin (vitamin B-12) 500 mcg Tablet 500 mcg PO QAM RF: 0 Discharge Orders: Discharge Order (Routine); Ordered 05/15/21 Ordered By: Kirsty Valenzuela/Other Patient Handouts: Appendectomy, What Is Appendicitis? Admission Data Admit Date/Time: 05/14/21 02:12 Attending Provider: Tomas Caruso Admit Provider: Tomas Caruso Primary Care Provider: PCP,NO Other Providers: Tomas Caruso Other Interventions: Discharge Summary Assessment (RN) Last Done: 05/15/21 10:55
== END 2021-05-15 13:12 | disposition home or self-care (01) ==
LOC: ED 13:34 → OR 23:39 → 3N 23:39